=== PATIENT | male | born 1985 | race Caucasian/White ===

== ENCOUNTER → 2016-05-20 | Outpatient (CLI) | payer BC ==
--- NOTE | 2016-05-20 20:46 | CONS ---
DATE OF CONSULTATION: 05/20/2016 This patient is a 30-year-old gentleman who has been evaluated in the sleep center for possible obstructive sleep apnea/hypopnea syndrome. HISTORY OF PRESENT ILLNESS/SLEEP-WAKE EVALUATION: Patient's usual sleep schedule on working days is from 9 p.m. until around 5 a.m., on weekends from around 11 or 12 midnight until between 5 and 7 a.m. No problem with falling asleep. No TV in bedroom. Patient sleeps in different positions. He wakes up from sleep possibly once with nocturia. According to his , he has loud snoring and witnessed episodes of stopped breathing during sleep. Positive history of sleepwalking and positive history of sleepwalking in the past during childhood; no recent episodes or sleepwalking. Past medical history is positive for: 1. Back pain. 2. Sometimes collection of food in the tonsillar crypt. MEDICATIONS: None. PAST SURGICAL HISTORY: None. SOCIAL HISTORY: Negative for smoking. Alcohol consumption: Beer from 2 to 5, usually 2 in the evening. REVIEW OF SYSTEMS: Sometimes awakenings from sleep. No fevers. No double vision. No recent chest pain. No shortness of breath. No abdominal pain. No bleeding episodes. No blood in urine. No seizure episodes. FAMILY HISTORY: Positive for snoring. PHYSICAL EXAMINATION: Patient is a pleasant 30-year-old gentleman without distress. VITAL SIGNS: BP 140/82, HR 98, RR 16. Height 5 feet 11 inches. Weight 251. BMI 35. Neck 17 inches in circumference. Temperature 98.1. Oxygen saturation at room air 98%. HEENT: PERRLA, EOMI. Evaluation of oropharynx showed tongue protrudes midline; moderately low position of soft palate. Small tonsils, possibly with signs of previous inflammation. NECK: Supple. No JVD. Thyroid is not palpable. LUNGS: Clear to percussion and to auscultation. Good air exchange. No wheezing or rhonchi. HEART: S1, S2 regular. No murmurs, gallops or rubs. ABDOMEN: Slightly obese. EXTREMITIES: No clubbing or cyanosis. DEBT COUNSELOR: Awake, alert, and oriented x3. Cranial nerves 2 to 7 intact. There is no fasciculation or atrophy noted. No focal deficits observed. IMPRESSION: 1. Snoring, witnessed episodes of stopped breathing during sleep, moderately low position of soft palate, awakenings from sleep with nocturia; possible obstructive sleep apnea/hypopnea syndrome. 2. Sleeptalking. 3. Back pain. 4. Episodes of collection of food in the tonsils. 5. Consumer of beer 2 to 5 per night. PLAN: 1. Polysomnography for evaluation of patient's breathing during sleep. 2. CPAP/BiPAP titration if sleep study confirms obstructive sleep apnea-hypopnea syndrome. 3. Preferable position during sleep on the side. 4. No driving if patient feels any sleepiness. Patient is aware of civil and criminal liability for unsafe driving. 5. I will see patient for follow-up visit to explain results of the testing and following plan. 6. Patient was recommended to decrease amount of beer and preferably stop beer at nighttime. Thank you very much for referring this patient for consultation. Sincerely, Mike Scanlon MD, PhD, FAASM. Diplomat of [place], Sleep Medicine Board by [employer] [place] [employer] Supervisor of [facility] [place]
== END | disposition home or self-care (01) ==
LOC: SLEEP 16:35
PROVIDERS: ATTEND Internal Medicine
DX: G47.33 Obstructive sleep apnea (adult) (pediatric) (principal); F51.3 Sleepwalking [somnambulism]; Z68.35 Body mass index [BMI] 35.0-35.9, adult
CPT/HCPCS: 99211

== ENCOUNTER → 2016-08-26 | Outpatient (CLI) | payer BC ==
--- NOTE | 2016-08-27 06:28 | PN ---
DATE OF SERVICE: 08/26/2016 A 31-year-old gentleman who has been followed in the sleep center for treatment of obstructive sleep apnea/hypopnea syndrome. Recently patient had a home sleep apnea test and CPAP titration and I discussed results of the tests with patient in detail. He has severe obstructive sleep apnea, was started on treatment with CPAP at the pressure of 10 cm of water. Patient successfully started treatment with CPAP, sleeps better with the machine. Does not have problems with the mask or pressure. Patient brought his CPAP unit with him. I checked CPAP unit. CPAP pressure is 10 cm of water. Usage is 23 out of 30 nights for more than 4 hours. CPAP pressure at 10 cm of water. Leak is 7 L per minute, which is acceptable. Apnea-hypopnea index reading for the last month only 0.8, which is perfect. [place] Sleepiness Scale today is 2. MEDICATIONS: None. PHYSICAL EXAMINATION: During physical exam, patient in no distress. VITAL SIGNS: BP 154/89, HR 94, RR 16. Weight 255. Temperature 98.2. Oxygen saturation at room air 94% . HEENT: PERRLA, EOMI. Oropharynx low position of soft palate. NECK: Supple. No JVD, Thyroid is not palpable. LUNGS: Clear to percussion and to auscultation. Good air exchange. No wheezing or rhonchi. HEART: S1, S2 regular. No murmurs, gallops, or rubs. ABDOMEN: Slightly obese. CIRCUIT CLERK: Awake, alert, and oriented x3. Cranial nerves 2 to 7 intact. There is no fasciculation or atrophy noted. No focal deficits observed. IMPRESSION: 1. Severe obstructive sleep apnea-hypopnea syndrome. Apnea-hypopnea index 41 with oxygen desaturation to 82% on full control with CPAP at 10 cm of water. Patient is demonstrating good compliance with treatment benefiting from treatment. 2. History of back pain. 3. Posterior history of sleeptalking. 4. Positive history of tonsillitis. PLAN: 1. Patient will continue to use CPAP equipment every night for the whole night. 2. Losing weight. 3. Sleep hygiene with regular time in bed for at least 8 hours. 4. No driving if feeling any sleepiness. 5. ( ) prescription for all necessary CPAP supplies. Thank you very much for allowing me to participate in the management of your patient. Sincerely, Mike Scanlon MD, PhD, FAASM Diplomat of [place] [employer], Sleep Medicine Board by [employer] Estate Planner of [facility] [place]
== END | disposition home or self-care (01) ==
LOC: SLEEP 15:40
PROVIDERS: ATTEND Internal Medicine
DX: G47.33 Obstructive sleep apnea (adult) (pediatric) (principal)